=== PATIENT | female | born 2000 | race Hispanic/Latino ===

== ENCOUNTER 2021-07-07 12:23 | Emergency (ER) | payer BC, MEDICAID ==
[~2021-07-07] VITALS: Ht 162.6 cm; Wt 79.8 kg
[2021-07-07] MEDS ORDERED: 0.9%NACL 1000ML 1,000 ML IV SCH (13:00)
[2021-07-07] MEDS ORDERED: PROMETHAZINE HCL 25 MG/ML 1ML AMPULE IM ONE (13:00)
[2021-07-07 13:03] LABS: BASOPHILS % (AUTO) 0.5 % (0.0-5.0); EOSINOPHILS % (AUTO) 2.9 % (0.0-8.0); HEMATOCRIT 39.4 % (36-48); LYMPHOCYTES % (AUTO) 18.1 % (21.0-51.0); MEAN CORPUSCULAR HEMOGLOBIN 27.2 pg (27.0-33.0); MEAN CORPUSCULAR VOLUME 79.9 fL (79-99); MONOCYTES % (AUTO) 8.1 % (3.0-13.0); NEUTROPHILS % (AUTO) 70.1 % (40.0-77.0); PLATELET COUNT (AUTO) 321 K/uL (130-400); RED BLOOD CELL COUNT(AUTO) 4.93 MIL/uL (4.00-5.50); RED CELL DISTRIBUTION WIDTH 14.3 % (11.0-15.5); WHITE BLOOD COUNT (AUTO) 10.1 K/uL (4.8-10.8)
[2021-07-07 13:03] LABS: APPEARANCE,URINE Clear (CLEAR); BILIRUBIN,URINE Negative (NEGATIVE); COLOR,URINE Yellow (YELLOW); GLUCOSE, URINE (UA) Negative (NEGATIVE); KETONES,URINE Trace mg/dL (NEGATIVE); LEUKOCYTE ESTERASE ,URINE Small (NEGATIVE); NITRATE,URINE Negative (NEGATIVE); OCCULT BLOOD,URINE Negative (NEGATIVE); PROTEIN,URINE Negative (NEGATIVE); UROBILINOGEN,URINE 0.2 mg/dL (0.2-1.0)
[2021-07-07 13:09] LABS: BACTERIA,URINE Few /HPF (None Seen); MUCUS,URINE Moderate LPF (None Seen); RBC,URINE None Seen /HPF (0-1)
[2021-07-07 13:10] LABS: CREATININE 0.5 mg/dL (0.5-1.5); POTASSIUM 3.6 mmol/L (3.5-5.1)
[2021-07-07 13:41] LABS: ALBUMIN 3.3 g/dL (3.5-5.0); BILIRUBIN,TOTAL 0.3 mg/dL (0.2-1.0)
[2021-07-07] MEDS ORDERED: CEFTRIAXONE 1G VIAL IVP ONE (14:00)
[2021-07-07] MEDS ORDERED: CEFTRIAXONE 1G VIAL ONE (14:17)
[2021-07-07] MEDS ORDERED: CEPH500B PO (14:19)
[2021-07-07] MEDS ORDERED: PHEN12S PR (14:19)
[2021-07-07 14:32] VITALS: BP 128/79
== END 2021-07-07 14:51 | disposition home or self-care (01) ==
LOC: EDH 12:23
DX: O99.619 Diseases of the digestive system complicating pregnancy, unspecified trimester (principal); K52.9 Noninfective gastroenteritis and colitis, unspecified; O23.40 Unspecified infection of urinary tract in pregnancy, unspecified trimester; N39.0 Urinary tract infection, site not specified; Z3A.00 Weeks of gestation of pregnancy not specified; Z20.822 Contact with and (suspected) exposure to COVID-19
CPT/HCPCS: 36415; 80053; 81001; 84702; 85025; 87635; 87804 ×2; 96361; 96372; 96374; 99284; C9803; J0696; J2550; J7030

== ENCOUNTER 2021-07-23 10:27 | Emergency (ER) | payer BC, MEDICAID ==
[~2021-07-23] VITALS: Ht 162.6 cm; Wt 78.9 kg
[~2021-07-23 10:27] MED LIST: CEPH500B PO; PHEN12S PR
[2021-07-23 11:04] LABS: APPEARANCE,URINE Cloudy (CLEAR); BILIRUBIN,URINE Negative (NEGATIVE); COLOR,URINE Dark Yellow (YELLOW); GLUCOSE, URINE (UA) Negative (NEGATIVE); KETONES,URINE Trace mg/dL (NEGATIVE); LEUKOCYTE ESTERASE ,URINE Moderate (NEGATIVE); NITRATE,URINE Negative (NEGATIVE); OCCULT BLOOD,URINE Negative (NEGATIVE); PH,URINE 6.5 (5.0-8.0); PROTEIN,URINE POS 1+ mg/dL (NEGATIVE)
[2021-07-23 11:05] LABS: HCG,QUAL RESULT POSITIVE (NEGATIVE)
[2021-07-23 11:10] LABS: BASOPHILS % (AUTO) 0.5 % (0.0-5.0); EOSINOPHILS % (AUTO) 2.9 % (0.0-8.0); HEMATOCRIT 38.2 % (36-48); LYMPHOCYTES % (AUTO) 16.8 % (21.0-51.0); MEAN CORPUSCULAR HEMOGLOBIN 27.1 pg (27.0-33.0); MEAN CORPUSCULAR VOLUME 79.6 fL (79-99); MONOCYTES % (AUTO) 6.2 % (3.0-13.0); NEUTROPHILS % (AUTO) 73.1 % (40.0-77.0); PLATELET COUNT (AUTO) 282 K/uL (130-400); RED CELL DISTRIBUTION WIDTH 14.3 % (11.0-15.5); WHITE BLOOD COUNT (AUTO) 7.6 K/uL (4.8-10.8)
[2021-07-23 11:16] LABS: RBC,URINE 0-1 /HPF (0-1)
[2021-07-23 11:17] LABS: BACTERIA,URINE Few /HPF (None Seen); MUCUS,URINE Moderate LPF (None Seen)
[2021-07-23 11:23] LABS: CREATININE 0.5 mg/dL (0.5-1.5); POTASSIUM 3.6 mmol/L (3.5-5.1)
[2021-07-23 11:28] LABS: ALBUMIN 3.3 g/dL (3.5-5.0); BILIRUBIN,TOTAL 0.3 mg/dL (0.2-1.0); TOTAL PROTEIN, SERUM 6.9 g/dL (6.0-8.3)
[2021-07-23] MEDS ORDERED: 0.9%NACL 1000ML 1,000 ML IV ONE (12:00)
[2021-07-23] MEDS ORDERED: ONDANSETRON 4MG INJ IVP ONE (12:00)
[2021-07-23] MEDS ORDERED: MACR100 PO (13:22)
[2021-07-23 13:42] VITALS: BP 115/75
== END 2021-07-23 13:44 | disposition home or self-care (01) ==
LOC: EDH 10:27
DX: O23.41 Unspecified infection of urinary tract in pregnancy, first trimester (principal); N39.0 Urinary tract infection, site not specified; O99.891 Other specified diseases and conditions complicating pregnancy; E86.9 Volume depletion, unspecified; Z3A.11 11 weeks gestation of pregnancy
CPT/HCPCS: 36415; 80053; 81001; 81025; 85025; 87088; 96361; 96374; 99284; J2405; J7030

== ENCOUNTER 2021-07-29 09:52 | Emergency (ER) | payer BC, MEDICAID ==
[~2021-07-29] VITALS: Ht 162.6 cm; Wt 78.0 kg
[~2021-07-29 09:52] MED LIST changes: +MACR100 PO
[2021-07-29 09:54] VITALS: BP 112/81
[2021-07-29 10:16] LABS: BASOPHILS % (AUTO) 0.7 % (0.0-5.0); EOSINOPHILS % (AUTO) 1.2 % (0.0-8.0); HEMATOCRIT 40.4 % (36-48); LYMPHOCYTES % (AUTO) 15.9 % (21.0-51.0); MEAN CORPUSCULAR HEMOGLOBIN 27.3 pg (27.0-33.0); MEAN CORPUSCULAR HGB CONC 34.4 g/dL (32.0-36.0); MEAN CORPUSCULAR VOLUME 79.4 fL (79-99); MONOCYTES % (AUTO) 5.4 % (3.0-13.0); NEUTROPHILS % (AUTO) 76.4 % (40.0-77.0); PLATELET COUNT (AUTO) 297 K/uL (130-400); RED BLOOD CELL COUNT(AUTO) 5.09 MIL/uL (4.00-5.50); RED CELL DISTRIBUTION WIDTH 14.1 % (11.0-15.5); WHITE BLOOD COUNT (AUTO) 6.9 K/uL (4.8-10.8)
[2021-07-29 10:27] LABS: CREATININE 0.6 mg/dL (0.5-1.5); POTASSIUM 3.6 mmol/L (3.5-5.1)
[2021-07-29] MEDS ORDERED: 0.9%NACL 1000ML 1,000 ML IV ONE (10:30)
[2021-07-29] MEDS ORDERED: ONDANSETRON 4MG INJ IVP ONE (10:30)
[2021-07-29 10:31] LABS: ALBUMIN 3.6 g/dL (3.5-5.0); BILIRUBIN,TOTAL 0.4 mg/dL (0.2-1.0); TOTAL PROTEIN, SERUM 7.5 g/dL (6.0-8.3)
[2021-07-29 10:40] LABS: HCG,QUAL RESULT POSITIVE (NEGATIVE)
[2021-07-29 10:41] LABS: APPEARANCE,URINE Clear (CLEAR); BILIRUBIN,URINE Negative (NEGATIVE); COLOR,URINE Dark Yellow (YELLOW); GLUCOSE, URINE (UA) Negative (NEGATIVE); KETONES,URINE >=80 mg/dL (NEGATIVE); LEUKOCYTE ESTERASE ,URINE Trace (NEGATIVE); NITRATE,URINE Negative (NEGATIVE); OCCULT BLOOD,URINE Negative (NEGATIVE); PH,URINE 6.5 (5.0-8.0); PROTEIN,URINE POS 1+ mg/dL (NEGATIVE)
[2021-07-29 10:52] LABS: BACTERIA,URINE Rare /HPF (None Seen); MUCUS,URINE Few LPF (None Seen); RBC,URINE 0-1 /HPF (0-1); SQUAMOUS EPITHELIAL CELL,UR Rare /HPF (0-2)
== END 2021-07-29 12:39 | disposition home or self-care (01) ==
LOC: EDH 09:52
DX: O99.281 Endocrine, nutritional and metabolic diseases complicating pregnancy, first trimester (principal); E86.9 Volume depletion, unspecified; O21.9 Vomiting of pregnancy, unspecified; Z3A.12 12 weeks gestation of pregnancy; Z20.822 Contact with and (suspected) exposure to COVID-19
CPT/HCPCS: 36415; 80053; 81001; 81025; 83690; 85025; 87635; 96361; 96374; 99284; C9803; J2405; J7030

== ENCOUNTER 2021-11-20 15:37 | Observation (INO) | payer BC, MEDICAID ==
[~2021-11-20] VITALS: Ht 162.6 cm; Wt 87.1 kg
[2021-11-20 16:37] LABS: BASOPHILS % (AUTO) 0.4 % (0.0-5.0); HEMATOCRIT 31.1 % (36-48); LYMPHOCYTES % (AUTO) 19.1 % (21.0-51.0); MEAN CORPUSCULAR HEMOGLOBIN 26.4 pg (27.0-33.0); MEAN CORPUSCULAR HGB CONC 33.8 g/dL (32.0-36.0); MEAN CORPUSCULAR VOLUME 78.1 fL (79-99); MONOCYTES % (AUTO) 8.6 % (3.0-13.0); NEUTROPHILS % (AUTO) 69.4 % (40.0-77.0); PLATELET COUNT (AUTO) 301 K/uL (130-400); RED BLOOD CELL COUNT(AUTO) 3.98 MIL/uL (4.00-5.50); RED CELL DISTRIBUTION WIDTH 12.8 % (11.0-15.5); WHITE BLOOD COUNT (AUTO) 9.8 K/uL (4.8-10.8)
[2021-11-20 16:46] LABS: CREATININE 0.5 mg/dL (0.5-1.5); POTASSIUM 3.2 mmol/L (3.5-5.1)
[2021-11-20 16:54] LABS: ALBUMIN 2.5 g/dL (3.5-5.0); TOTAL PROTEIN, SERUM 6.2 g/dL (6.0-8.3)
[2021-11-20 17:03] LABS: APPEARANCE,URINE CLEAR (CLEAR); BILIRUBIN,URINE NEGATIVE (NEGATIVE); COLOR,URINE YELLOW (YELLOW); GLUCOSE, URINE (UA) NEGATIVE (NEGATIVE); KETONES,URINE 5 mg/dL (NEGATIVE); LEUKOCYTE ESTERASE ,URINE 250 Leu/uL (NEGATIVE); NITRATE,URINE NEGATIVE (NEGATIVE); OCCULT BLOOD,URINE NEGATIVE (NEGATIVE); PH,URINE 5.5 (5.0-8.0); PROTEIN,URINE 10 mg/dL (NEGATIVE); UROBILINOGEN,URINE 0.2 mg/dL (0.2-1.0)
[2021-11-20] MEDS ORDERED: KCL 20 MEQ ERTAB PO ONE (17:15)
[2021-11-20 17:27] LABS: BACTERIA,URINE Moderate /HPF (None Seen); MUCUS,URINE Moderate LPF (None Seen); SQUAMOUS EPITHELIAL CELL,UR Few /HPF (0-2)
[2021-11-20 17:59] VITALS: BP 105/69
== END 2021-11-20 20:20 | disposition home or self-care (01) ==
LOC: EDH 15:37 → LDH 18:57
PROVIDERS: ADMIT Obstetrics & Gynecology; ATTEND Obstetrics & Gynecology
DX: O99.353 Diseases of the nervous system complicating pregnancy, third trimester (principal); G43.109 Migraine with aura, not intractable, without status migrainosus; O23.13 Infections of bladder in pregnancy, third trimester; N30.00 Acute cystitis without hematuria; Z3A.31 31 weeks gestation of pregnancy
CPT/HCPCS: 99284; 80053; 85025; 87088; 81001; 36415; G0378 ×2

== ENCOUNTER 2022-12-22 17:08 | Emergency (ER) | payer BC, MEDICAID, OTHER ==
[~2022-12-22] VITALS: Ht 162.6 cm; Wt 85.7 kg
[~2022-12-22 17:08] MED LIST changes: -CEPH500B PO; +IBUP-2077 PO; -MACR100 PO; -PHEN12S PR; +PREN-226 PO
[2022-12-22 18:44] LABS: BASOPHILS # (AUTO) 0.05 K/uL (0.00-0.20); BASOPHILS % (AUTO) 1.1 % (0.0-5.0); EOSINOPHILS # (AUTO) 0.31 K/uL (0.00-0.70); EOSINOPHILS % (AUTO) 6.6 % (0.0-8.0); IMMATURE GRANULOCYTE ABSOLUTE 0.01 K/uL (0-1); LYMPHOCYTES # (AUTO) 1.3 K/uL (1.0-4.8); LYMPHOCYTES % (AUTO) 27.8 % (21.0-51.0); MEAN CORPUSCULAR HEMOGLOBIN 26.1 pg (27.0-33.0); MEAN CORPUSCULAR HGB CONC 33.3 g/dL (32.0-36.0); MEAN CORPUSCULAR VOLUME 78.4 fL (79-99); MONOCYTES # (AUTO) 0.5 K/uL (0.1-1.0); MONOCYTES % (AUTO) 10.9 % (3.0-13.0); NEUTROPHILS # (AUTO) 2.5 K/uL (1.8-7.7); NEUTROPHILS % (AUTO) 53.4 % (40.0-77.0); PLATELET COUNT (AUTO) 286 K/uL (130-400); RED CELL DISTRIBUTION WIDTH 13.6 % (11.0-15.5); WHITE BLOOD COUNT (AUTO) 4.7 K/uL (4.8-10.8)
[2022-12-22 18:45] LABS: APPEARANCE,URINE CLEAR (CLEAR); BILIRUBIN,URINE NEGATIVE (NEGATIVE); COLOR,URINE LIGHT-YELLOW (YELLOW); GLUCOSE, URINE (UA) NEGATIVE (NEGATIVE); KETONES,URINE NEGATIVE (NEGATIVE); LEUKOCYTE ESTERASE ,URINE 75 Leu/uL (NEGATIVE); NITRATE,URINE NEGATIVE (NEGATIVE); OCCULT BLOOD,URINE NEGATIVE (NEGATIVE); PROTEIN,URINE NEGATIVE (NEGATIVE); UROBILINOGEN,URINE 0.2 mg/dL (0.2-1.0)
[2022-12-22 18:48] LABS: HCG,QUALITATIVE URINE NEGATIVE (NEGATIVE)
[2022-12-22 18:49] LABS: ADD UA MICROSCOPIC YES
[2022-12-22 18:51] LABS: BACTERIA,URINE MOD /HPF (None Seen); MUCUS,URINE FEW LPF (None Seen); RBC,URINE 0-1 /HPF (0-1); SQUAMOUS EPITHELIAL CELL,UR MOD /HPF (0-2)
[2022-12-22 18:54] LABS: CREATININE 0.7 mg/dL (0.5-1.5); POTASSIUM 3.4 mmol/L (3.5-5.1)
[2022-12-22 18:59] LABS: ALBUMIN 3.7 g/dL (3.5-5.0); BILIRUBIN,TOTAL 0.4 mg/dL (0.2-1.0); TOTAL PROTEIN, SERUM 7.4 g/dL (6.0-8.3)
[2022-12-22] MEDS ORDERED: KETOROLAC 30MG VIAL (30MG/ML) IVP ONE (19:30)
[2022-12-22] MEDS ORDERED: ONDANSETRON 4MG INJ IVP ONE (19:30)
[2022-12-22] MEDS ORDERED: IPRATROPIUM/ALBUTEROL SULFATE 3 ML SOLUTION IH ONE (19:30)
[2022-12-22] MEDS ORDERED: SOLU-MEDROL 125MG VIAL IVP ONE (19:30)
[2022-12-22] MEDS ORDERED: 0.9%NACL 1000ML 1,000 ML IV ONE (19:30)
[2022-12-22] MEDS ORDERED: IOHEXOL 350 MG/ML 100ML INFUS..BTL IV ONE (19:55)
[2022-12-22 20:07] LABS: RAPID GROUP A STREP negative (NEGATIVE)
[2022-12-22 20:16] LABS: INFLUENZA TYPE A Negative For Type A (NEGATIVE); INFLUENZA TYPE B Negative For Type B (NEGATIVE)
[2022-12-22 20:18] VITALS: PULSE 74; RESP 18
[2022-12-22 21:00] LABS: SARS-CoV-2, RNA, NAAT NEGATIVE SARS CoV-2 (NEGATIVE)
[2022-12-22] MEDS ORDERED: CEFD300C3 PO (21:52)
[2022-12-22] MEDS ORDERED: BENZ-39 PO (21:52)
[2022-12-22] MEDS ORDERED: IPRA3AMP24 IH (21:52)
[2022-12-22] MEDS ORDERED: METH4TAB3 PO (21:52)
[2022-12-22] MEDS ORDERED: ONDA-104 PO (21:52)
[2022-12-22] MEDS ORDERED: ALBU6.7H14 IH (21:52)
[2022-12-22 22:36] VITALS: BP 116/78; PULSE 69; RESP 18; O2SAT 99
== END 2022-12-22 22:38 | disposition home or self-care (01) ==
LOC: EDH 17:08
DX: N39.0 Urinary tract infection, site not specified (principal); N83.201 Unspecified ovarian cyst, right side; I88.0 Nonspecific mesenteric lymphadenitis; J40 Bronchitis, not specified as acute or chronic; Z79.899 Other long term (current) drug therapy
CPT/HCPCS: 99285; 74177; 96374; 96361; 71045; 96375; 87635; 80053; 83690; 85025; 87088; 87880; 87804 ×2; 81001; 81025; 36415; 94640; C9803; J7030; J2930; J2405; J1885; Q9967

== ENCOUNTER → 2024-04-02 | Outpatient (CLI) | payer OTHER ==
[~2024-04-02] MED LIST changes: +ALBU6.7H14 IH; +BENZ-39 PO; +CEFD300C3 PO; +IPRA3AMP24 IH; +METH4TAB3 PO; +ONDA-104 PO
[2024-04-02 09:38] LABS: BASOPHILS # (AUTO) 0.05 K/uL (0.00-0.20); BASOPHILS % (AUTO) 0.8 % (0.0-5.0); EOSINOPHILS # (AUTO) 0.26 K/uL (0.00-0.70); EOSINOPHILS % (AUTO) 4.2 % (0.0-8.0); HEMATOCRIT 39.8 % (36-48); IMMATURE GRANULOCYTE ABSOLUTE 0.01 K/uL (0-1); LYMPHOCYTES % (AUTO) 33.2 % (21.0-51.0); MEAN CORPUSCULAR HEMOGLOBIN 27.4 pg (27.0-33.0); MEAN CORPUSCULAR HGB CONC 33.4 g/dL (32.0-36.0); MEAN CORPUSCULAR VOLUME 82.1 fL (79-99); MONOCYTES # (AUTO) 0.4 K/uL (0.1-1.0); MONOCYTES % (AUTO) 6.3 % (3.0-13.0); NEUTROPHILS # (AUTO) 3.4 K/uL (1.8-7.7); NEUTROPHILS % (AUTO) 55.3 % (40.0-77.0); PLATELET COUNT (AUTO) 340 K/uL (130-400); RED BLOOD CELL COUNT(AUTO) 4.85 MIL/uL (4.00-5.50); RED CELL DISTRIBUTION WIDTH 12.6 % (11.0-15.5); WHITE BLOOD COUNT (AUTO) 6.2 K/uL (4.8-10.8)
[2024-04-02 09:42] LABS: APPEARANCE,URINE TURBID (CLEAR); BILIRUBIN,URINE NEGATIVE (NEGATIVE); COLOR,URINE BROWN (YELLOW); GLUCOSE, URINE (UA) NEGATIVE (NEGATIVE); KETONES,URINE 5 mg/dL (NEGATIVE); LEUKOCYTE ESTERASE ,URINE 75 Leu/uL (NEGATIVE); NITRATE,URINE NEGATIVE (NEGATIVE); OCCULT BLOOD,URINE LARGE (NEGATIVE); PROTEIN,URINE 20 mg/dL (NEGATIVE); UROBILINOGEN,URINE 0.2 mg/dL (0.2-1.0)
[2024-04-02 09:44] LABS: ADD UA MICROSCOPIC YES
[2024-04-02 09:48] LABS: BACTERIA,URINE FEW /HPF (None Seen); MUCUS,URINE RARE LPF (None Seen); RBC,URINE TNTC /HPF (0-1); SQUAMOUS EPITHELIAL CELL,UR FEW /HPF (0-2); WBC,URINE 26-50 /HPF (0-1)
[2024-04-02 10:25] LABS: HEMOGLOBIN A1C 5.5 % (4.0-6.0)
[2024-04-02 10:56] LABS: ALBUMIN 3.9 g/dL (3.5-5.0); BILIRUBIN,TOTAL 0.4 mg/dL (0.2-1.0); CREATININE 0.7 mg/dL (0.5-1.0); POTASSIUM 3.9 mmol/L (3.5-5.1); THYROID STIMULATING HORMONE 1.26 uIU/mL (0.36-3.74); TOTAL PROTEIN, SERUM 7.5 g/dL (6.0-8.3)
== END | disposition home or self-care (01) ==
LOC: LAB 09:00
PROVIDERS: ATTEND Internal Medicine Nephrology
DX: Z00.00 Encounter for general adult medical examination without abnormal findings (principal)
CPT/HCPCS: 36415; 80053; 80061; 81001; 83036; 84443; 85025; 87086

== ENCOUNTER 2024-05-02 17:12 | Emergency (ER) | payer OTHER ==
[~2024-05-02] VITALS: Ht 162.6 cm; Wt 86.2 kg
[2024-05-02 18:03] LABS: RAPID GROUP A STREP negative (NEGATIVE)
[2024-05-02 18:12] LABS: COVID19 (SARS ANTIGEN RAPID) PRESUMPTIVE NEGATIVE (NEGATIVE); INFLUENZA TYPE A Negative For Type A (NEGATIVE); INFLUENZA TYPE B Negative For Type B (NEGATIVE)
[2024-05-02 18:26] VITALS: BP 140/80; PULSE 72; RESP 16; TEMP 98.1; O2SAT 98
[2024-05-02] MEDS: dexaMETHasone SOD PHOSPHATE 4 MG/ML 1ML VIAL IM ONE (18:33)
[2024-05-02] MEDS ORDERED: FLUT16H NS (18:39)
[2024-05-02] MEDS ORDERED: PSEU120T62 PO (18:39)
--- NOTE | 2024-05-02 18:40 | ERN ---
General Chief Complaint: Flu Symptoms Stated Complaint: FLY SYMPTOMS X 3 DAYS Time Seen by MD: 17:14 Time Seen by Midlevel: 17:14 Source: patient History of Present Illness Initial Comments 23-year-old female who presents to the emergency department due to flu-like symptoms onset three days. Patient reports cough, sore throat, congestion, bilateral ear pain, headache but denies further associated symptoms. Denies significant past medical history. Allergies: Coded Allergies: No Known Drug Allergies (Unverified Allergy, Unknown, 07/07/21) Uncoded Allergies: LATEX (Allergy, Unknown, HIVES, 02/02/22) Home Meds Active Scripts Fluticasone Propionate (Flonase Nasal [place]) 50 Mcg/Actuation [place], 2 SPRAY NS DAILY for 7 Days, #16 GM 0 Refills Prov:FELICIANO RIZO 05/02/24 Pseudoephedrine HCl (Sudafed 12 Hour) 120 Mg Tablet.er, 1 TAB PO BID for 7 Days, #14 TAB 0 Refills Prov:FELICIANO RIZO 05/02/24 Benzonatate (Tessalon Perles) 100 Mg Cap, 100 MG PO TID for 5 Days, #20 CAP Prov:NARINDER FRAZIER 12/22/22 Ondansetron HCl (Ondansetron HCl) 4 Mg Tablet, 4 MG PO TID for 3 Days, #9 TAB Prov:NARINDER FRAZIER 12/22/22 Methylprednisolone (Medrol) 4 Mg Tab.ds.pk, 4 MG PO AD for 5 Days, #1 PACK Prov:NARINDER FRAZIER 12/22/22 Albuterol Sulfate (Proventil Hfa) 90 Mcg Hfa.aer.ad, 2 INH IH Q4HPRN PRN for SHORTNESS OF BREATH for 30 Days, #1 INHALER Prov:NARINDER FRAZIER 12/22/22 Ipratropium/Albuterol Sulfate (Iprat-Albut 0.5-3(2.5) mg/3 ml) 0.5 Mg-3 Mg (2.5 Mg Base)/3 Ml Ampul.neb, 3 ML IH Q4HPRN for 10 Days, #90 UNIT Prov:NARINDER FRAZIER 12/22/22 Cefdinir (Cefdinir) 300 Mg Capsule, 300 MG PO BID for 10 Days, #20 CAP Prov:NARINDER FRAZIER Amy MULTANI 12/22/22 Reported Medications Ibuprofen (Ibuprofen 800 mg Tab) 800 Mg Tab, 800 MG PO Q8H PRN for PAIN, #30 TAB 02/04/22 Vit No.179/Iron/Folic ( Tablet) 1 Each Tablet, 1 EACH PO DAILYLUNCH, TAB 02/03/22 Past Medical History Past Medical History: Asthma Past Surgical History: None Family History Family History: Negative Social History Social History: Negative, Lives with family, Other Female( History) History: Not Applicable LMP: Mar 31, 2024 : 1 Para: 1 Aborts: 0 ROS Dictation Constitutional: Negative for fever,chills, and weight loss Eyes: Negative for injury, pain,redness, and discharge ENT: Positive for sore throat, bilateral ear pain, congestion Negative for injury,pain or swelling Cardiovascular: Negative for chest pain, palpitations, and edema Respiratory: Positive for cough Negative for shortness of breath, cough, and wheezing, Abdomen/GI: Negative for abdominal pain, nausea, vomiting, diarrhea, and constipation Back: Negative for injury and pain : Negative for painful urination, bleeding or discharge MS/Extremity: Negative for injury and deformity Skin: Negative for rash, and discoloration Neuro: Positive for headache Negative for weakness, numbness, tingling, and seizure Psych: Negative for suicide ideation, homicidal ideation, and hallucinations Physical Exam Physical Exam Dictation General: awake, alert, no acute distress Head/Face: Normocephalic, atraumatic Eyes: PERRL, EOMI, normal conjunctiva ENT: oral cavity clear, TMs clear, oral mucosa moist Neck: Supple, normal range of motion Cardiovascular: RRR, normal S1/S2 Respiratory: CTAB, no respiratory distress, no rales or wheezes Skin: Warm, dry, normal turgor, no rash MS/Extremity: Pulses equal, no cyanosis, neurovascular intact, FROM Neuro: COAx4, GCS 15, strength 5/5, CN 2-12 intact, normal cerebellar exam, normal gait, Psych: Normal behavior, mood, and affect normal Results Laboratory and Microbiology Lab and Micro Result Laboratory Tests Test 05/02/24 17:32 Influenza Type A Antigen Negative For Type A Influenza Type B Antigen Negative For Type B SARS-CoV-2 Antigen (Rapid) PRESUMPTIVE NEGATIVE Group A Streptococcus Rapid negative (NEGATIVE) Labs Reviewed?: Yes MDM MDM: Differential diagnosis: Influenza, strep, viral illness Rationale: 23-year-old female who presents to the emergency department due to flu-like symptoms onset three days. Patient reports cough, sore throat, congestion, bilateral ear pain, headache but denies further associated symptoms. Denies significant past medical history. Per physical examination patient is in no acute distress, nonlabored breathing. SARs, influenza, strep negative. Patient was educated on findings and diagnosis. Advised to follow up with PCP. Return to the emergency department if any worsening symptoms. Patient verbalized understanding. Patient stable for discharge. There are no social concerns with this patient. I independently interpreted the test that were performed, results were reviewed by me and considered findings on radiology if ordered. Medical management and examination interpretation discussions were had by me with other qualified healthcare professionals as indicated for the patient's care. ED Course Orders Procedure Category Date Status Time Covid19 (Sars Antigen LAB 05/02/24 Complete Rapid) 17:27 Rapid (Group A Strep) LAB 05/02/24 Complete 17:27 Influenza Type A & B, LAB 05/02/24 Complete Rapid 17:27 Dexamethasone 4mg/Ml PHA 05/02/24 Complete 1ml Vial (Dexametha 18:30 Current Medications Medications (Trade) Dose Ordered Sig/Chloe Route PRN Reason Start Time Stop Time Status Last Admin Dose Admin Dexamethasone Sodium Phosphate (dexaMETHasone 4MG/ML 1ML VIAL) 6 mg ONCE ONCE IM 05/02/24 18:30 05/02/24 18:31 DC 05/02/24 18:33 Vital Signs Date Time Temp Pulse Resp B/P (MAP) Pulse Ox O2 Delivery O2 Flow Rate FiO2 05/02/24 18:26 98.1 72 16 140/80 98 Room Air* 0 21 05/02/24 17:28 98.8 75 20 143/86 99 Room Air 0 DX & DISP Disposition: Discharge Departure Impression: Primary Impression: Viral illness Condition: Stable Scripts Fluticasone Propionate (Flonase Nasal [place]) 50 Mcg/Actuation [place] 2 SPRAY NS DAILY for 7 Days, #16 GM 0 Refills Prov: FELICIANO RIZO 05/02/24 Pseudoephedrine HCl (Sudafed 12 Hour) 120 Mg Tablet.er 1 TAB PO BID for 7 Days, #14 TAB 0 Refills Prov: FELICIANO RIZO 05/02/24 Additional Instructions: Discharge home. Rest. Follow up with primary care DrAnderson in 24 hours. Return to the ER for any acute changes or worsening symptoms. If any medications were prescribed take as directed. Okay to continue home medications unless otherwise discussed during your visit in the emergency room today. Patient was also advised to follow-up with primary care physician in 1 to 2 days for continued monitoring. I performed the substantive portion of the visit. I have reviewed and personally made and approve the management plan that is documented in the notes by myself or the JORGE LUIS. I acknowledge full responsibility for the patient's management plan. FELICIANO RIZO May 02, 2024 18:39 DEMI RAHMAN DO May 03, 2024 07:38
== END 2024-05-02 18:45 | disposition home or self-care (01) ==
LOC: EDH 17:12
DX: B34.9 Viral infection, unspecified (principal); Z20.822 Contact with and (suspected) exposure to COVID-19; J45.909 Unspecified asthma, uncomplicated
CPT/HCPCS: 99283; 87426; 87880; 87804 ×2; 96372; J1100

== ENCOUNTER → 2024-05-16 | Outpatient (CLI) | payer OTHER ==
[~2024-05-16] MED LIST changes: +FLUT16H NS; +PSEU120T62 PO
--- NOTE | 2024-05-17 08:42 | HMCIMG ---
US BREAST BILATERAL REASON: MASTODYNIA. COMPARISON: None TECHNIQUE: Bilateral breast ultrasound study was performed. FINDINGS: Over the region of interest at 12:00 of the left breast in the subareolar region, there are dense fibroglandular tissue. No evidence of cystic or hypoechoic mass is seen. There are bilateral axillary lymph nodes with right measuring 15 mm and left measuring 18 mm. IMPRESSION: No evidence of cystic or hypoechoic mass is seen. CATEGORY 2: BENIGN FINDINGS Recommend monthly self breast exam as well as annual clinical examination.
== END | disposition home or self-care (01) ==
LOC: RAH 08:42
PROVIDERS: ATTEND Obstetrics & Gynecology
DX: N64.4 Mastodynia (principal); R92.30 Dense breasts, unspecified

== ENCOUNTER → 2024-09-10 | Outpatient (CLI) | payer OTHER | END | disposition home or self-care (01) | LOC: LAB 10:34 | PROVIDERS: ATTEND Internal Medicine Nephrology | DX: N91.2 Amenorrhea, unspecified (principal) | CPT/HCPCS: 36415; 84703 ==

== ENCOUNTER → 2024-09-30 | Outpatient (CLI) | payer OTHER | END | disposition home or self-care (01) | LOC: RAH 08:15 | PROVIDERS: ATTEND Obstetrics & Gynecology | DX: N91.2 Amenorrhea, unspecified (principal) | CPT/HCPCS: 76856 ==

== ENCOUNTER 2024-10-07 17:10 | Emergency (ER) | payer OTHER ==
[~2024-10-07] VITALS: Ht 162.6 cm; Wt 88.0 kg
[2024-10-07] MEDS: 0.9%NACL 1000ML 1,000 ML IV ONE (17:39)
[2024-10-07 17:46] LABS: IMMATURE GRANULOCYTE ABSOLUTE 0.01 K/uL (0-1); NUCLEATED RED BLOOD CELLS 0.0 % (0.0-0.19); PLATELET COUNT (AUTO) 332 K/uL (130-400); RED BLOOD CELL COUNT(AUTO) 4.92 MIL/uL (4.00-5.50); RED CELL DISTRIBUTION WIDTH 13.5 % (11.0-15.5); WHITE BLOOD COUNT (AUTO) 11.5 K/uL (4.8-10.8)
[2024-10-07 18:00] LABS: CREATININE 0.6 mg/dL (0.5-1.0); GLOMERULAR FILTR. RATE CALC 127.0 mL/min (>90); GLUCOSE,RANDOM 93.0 mg/dL (70-105); SODIUM SERUM 135.0 mmol/L (136-145); UREA NITROGEN, BLOOD 6.0 mg/dL (7-18)
--- NOTE | 2024-10-07 18:04 | ERN ---
ED Note History of Present Illness Stated Complaint: N/V IN Chief Complaint: Vomiting in Time Seen by MD: 17:12 Dictation: 24-year-old female presents to ER complains of nausea, vomiting, abdominal pain. Patient states she is approximately 8 weeks . Denies fever, diarrhea, vaginal bleeding Allergies: Coded Allergies: No Known Drug Allergies (Unverified Allergy, Unknown, 07/07/21) Uncoded Allergies: LATEX (Allergy, Unknown, HIVES, 02/02/22) Home Meds Active Scripts Cephalexin Monohydrate (Keflex) 500 Mg Cap, 1 CAP PO TID for 10 Days, #30 CAP 0 Refills Prov:DAVID PRICE NP 10/07/24 Fluticasone Propionate (Flonase Nasal [place]) 50 Mcg/Actuation [place], 2 SPRAY NS DAILY for 7 Days, #16 GM 0 Refills Prov:FELICIANO RIZO 05/02/24 Pseudoephedrine HCl (Sudafed 12 Hour) 120 Mg Tablet.er, 1 TAB PO BID for 7 Days, #14 TAB 0 Refills Prov:FELICIANO RIZO 05/02/24 Benzonatate (Tessalon Perles) 100 Mg Cap, 100 MG PO TID for 5 Days, #20 CAP Prov:NARINDER FRAZIER 12/22/22 Ondansetron HCl (Ondansetron HCl) 4 Mg Tablet, 4 MG PO TID for 3 Days, #9 TAB Prov:NARINDER FRAZIER 12/22/22 Methylprednisolone (Medrol) 4 Mg Tab.ds.pk, 4 MG PO AD for 5 Days, #1 PACK Prov:NARINDER FRAZIER 12/22/22 Albuterol Sulfate (Proventil Hfa) 90 Mcg Hfa.aer.ad, 2 INH IH Q4HPRN PRN for SHORTNESS OF BREATH for 30 Days, #1 INHALER Prov:NARINDER FRAZIER 12/22/22 Ipratropium/Albuterol Sulfate (Iprat-Albut 0.5-3(2.5) mg/3 ml) 0.5 Mg-3 Mg (2.5 Mg Base)/3 Ml Ampul.neb, 3 ML IH Q4HPRN for 10 Days, #90 UNIT Prov:NARINDER FRAZIER 12/22/22 Cefdinir (Cefdinir) 300 Mg Capsule, 300 MG PO BID for 10 Days, #20 CAP Prov:NARINDER FRAZIER 12/22/22 Reported Medications Ibuprofen (Ibuprofen 800 mg Tab) 800 Mg Tab, 800 MG PO Q8H PRN for PAIN, #30 TAB 02/04/22 Vit No.179/Iron/Folic ( Tablet) 1 Each Tablet, 1 EACH PO DA ILYLUNCH, TAB 02/03/22 Past Medical History Past Medical History: Asthma Surgical History: None Family History: Negative Social History: Negative, Lives with family, Other History: Not Applicable LMP: Aug 09, 2024 : 2 Para: 1 Aborts: 0 Review of System Dictation Constitutional: Negative for fever,chills, and weight loss Eyes: Negative for injury, pain,redness, and discharge ENT: Negative for injury,pain or swelling Cardiovascular: Negative for chest pain, palpitations, and edema Respiratory: Negative for shortness of breath, cough, wheezing, and pleuritic chest pain Abdomen/GI: Negative for diarrhea, and constipation. Positive for abdominal pain, nausea, vomiting Back: Negative for injury and pain : Negative for injury, bleeding and discharge MS/Extremity: Negative for injury and deformity Skin: Negative for rash, and discoloration Neuro: Negative for headache, weakness, numbness, tingling, and seizure Psych: Negative for suicide ideation, homicidal ideation, and hallucinations Allergy/Immunology: Negative for hives, rash, and allergies Initial Vital Sign VS Vital Signs Date Time Temp Pulse Resp B/P (MAP) Pulse Ox O2 Delivery O2 Flow Rate FiO2 10/07/24 17:11 98.6 71 16 124/68 100 Room Air 0 10/07/24 17:20 21 Physical Exam Dictation General: awake, alert, NAD Head/Face: Normocephalic, atraumatic Eyes: PERRL, EOMI, vision at baseline ENT: oral cavity clear, TMs clear, no signs of infection Neck: Trachea midline, supple, no nuchal rigidity Cardiovascular: RRR, normal S1/S2, No MRGs, no JVD Respiratory: CTAB, no respiratory distress, No rales or wheezes Abdomen: Soft, non-tender, non-distended, normal bowel sounds, no guarding or rebound. Skin: Warm, dry, normal turgor, no rash MS/Extremity: Pulses equal, no cyanosis, neurovascular intact, FROM Neuro: COAx4, GCS 15, strength 5/5, CN 2-12 intact, normal cerebellar exam, normal gait, Psych: Normal behavior, mood, and affect normal Results (Laboratory/Radiology) Laboratory/Radiology Laboratory Tests Test 10/07/24 17:35 10/07/24 18:18 White Blood Count 11.5 K/uL (4.8-10.8) H Red Blood Count 4.92 MIL/uL (4.00-5.50) Hemoglobin 13.6 g/dL (12.0-16.0) Hematocrit 38.6 % (36-48) Mean Corpuscular Volume 78.5 fL (79-99) L Mean Corpuscular Hemoglobin 27.6 pg (27.0-33.0) Mean Corpuscular Hemoglobin Concent 35.2 g/dL (32.0-36.0) Red Cell Distribution Width 13.5 % (11.0-15.5) Platelet Count 332 K/uL (130-400) Mean Platelet Volume 9.2 fL (7.5-10.5) Immature Granulocyte % (Auto) 0.1 % (0-1) Neutrophils (%) (Auto) 71.4 % (40.0-77.0) Lymphocytes (%) (Auto) 20.7 % (21.0-51.0) L Monocytes (%) (Auto) 6.1 % (3.0-13.0) Eosinophils (%) (Auto) 1.2 % (0.0-8.0) Basophils (%) (Auto) 0.5 % (0.0-5.0) Neutrophils # (Auto) 8.2 K/uL (1.8-7.7) H Lymphocytes # (Auto) 2.4 K/uL (1.0-4.8) Monocytes # (Auto) 0.7 K/uL (0.1-1.0) Eosinophils # (Auto) 0.14 K/uL (0.00-0.70) Basophils # (Auto) 0.06 K/uL (0.00-0.20) Absolute Immature Granulocyte (auto 0.01 K/uL (0-1) Nucleated Red Blood Cells 0.0 % (0.0-0.19) Sodium Level 135 mmol/L (136-145) L Potassium Level 3.4 mmol/L (3.5-5.1) L Chloride Level 101 mmol/L (101-111) Carbon Dioxide Level 26 mmol/L (21-32) Blood Urea Nitrogen 6 mg/dL (7-18) L Creatinine 0.6 mg/dL (0.5-1.0) Glomerular Filtration Rate Calc 127 mL/min (>90) Random Glucose 93 mg/dL (70-105) Total Calcium 8.8 mg/dL (8.5-10.1) Urine Color YELLOW (YELLOW) Urine Appearance CLOUDY (CLEAR) H Urine pH 6.0 (5.0-8.0) Urine Specific [place] 1.029 (1.001-1.031) Urine Protein 20 mg/dL (NEGATIVE) H Urine Glucose (UA) NEGATIVE mg/dL (NEGATIVE) Urine Ketones NEGATIVE mg/dL (NEGATIVE) Urine Occult Blood NEGATIVE (NEGATIVE) Urine Nitrate NEGATIVE (NEGATIVE) Urine Bilirubin NEGATIVE mg/dL (NEGATIVE) Urine Urobilinogen 0.2 mg/dL (0.2-1.0) Urine Leukocyte Esterase 250 [place]/uL (NEGATIVE) H Urine RBC 2-5 /HPF (0-1) H Urine WBC 11-25 /HPF (0-1) H Urine Squamous Epithelial Cells FEW /HPF (0-2) Urine Bacteria RARE /HPF (None Seen) ED Course ED Course Orders Procedure Category Date Status Time Cbc With Differential LAB 10/07/24 Complete 17:28 Basic Metabolic Panel LAB 10/07/24 Complete 17:28 Ondansetron 4mg Inj PHA 10/07/24 Complete (Zofran 4mg Inj) 17:30 0.9%Nacl 1000ml (Ns PHA 10/07/24 Complete 1000ml) 17:30 Us Ob <14 Weeks US 10/07/24 Resulted 17:32 Urinalysis Profile LAB 10/07/24 Complete 18:13 Culture Urine AMAIRANI 10/07/24 In Process 18:34 Ceftriaxone 1g Vial PHA 10/07/24 Complete (Rocephine 1g Inj) 19:00 Current Medications Medications (Trade) Dose Ordered Sig/Chloe Route PRN Reason Start Time Stop Time Status Last Admin Dose Admin Ceftriaxone Sodium (ROCEphine 1G INJ) 1 gm ONCE ONCE IVPB 10/07/24 19:00 10/07/24 19:01 DC 10/07/24 18:45 Ondansetron HCl (zoFRAN 4MG INJ) 4 mg ONCE ONCE IVP 10/07/24 17:30 10/07/24 17:32 DC 10/07/24 17:39 Sodium Chloride 1,000 ml @ 0 mls/hr ONCE ONCE IV 10/07/24 17:30 10/07/24 17:32 DC 10/07/24 17:39 Vital Signs Date Time Temp Pulse Resp B/P (MAP) Pulse Ox O2 Delivery O2 Flow Rate FiO2 10/07/24 17:20 98.6 70 16 126/66 98 Room Air* 0 21 10/07/24 17:11 98.6 71 16 124/68 100 Room Air 0 Medical Decision Making MDM A 14 points ROS done, pertinent positive and negatives described in HPI; all others negative. TIME WAS SPENT ON COUNSELING, REVIEWING MEDICAL RECORDS, REVIEWING THE ENTIRE VISIT DOCUMENTATION (INCLUDING ANY COMMENTS THAT MAY HAVE BEEN GIVEN BY THE PATIENT i.e. THE REVIEW OF SYSTEMS) AND COORDINATION OF CARE Approximately 8 week OB patient with nausea vomiting abdominal pain no vaginal bleeding. Will order IV hydration antinausea medication and an Ob sono. Ob sono returned heart rate 176 Patient's symptoms improved after IV hydration and nausea medication. Urinalysis shows UTI. Antibiotics given. We will give antibiotics for home for UTI treatment. Patient advised to follow with Ob. Use at home Zofran for nausea. Patient VSS, NAD, nontoxic, stable for discharge. Pt given discharge instructions in layman terms and understood, all questions answered. Pt will follow up with PCP and return to the ER if worse. DX & DISP Disposition: Discharge Departure Impression: Primary Impression: Urinary tract infection Additional Impressions: First trimester , Hyperemesis gravidarum Condition: Stable Scripts Cephalexin Monohydrate (Keflex) 500 Mg Cap 1 CAP PO TID for 10 Days, #30 CAP 0 Refills Prov: DAVID PRICE NP 10/07/24 Referrals: NARINDER GROVES MD (PCP) DAVID PRICE NP Oct 07, 2024 18:04
[2024-10-07 18:27] LABS: APPEARANCE,URINE CLOUDY (CLEAR); GLUCOSE, URINE (UA) NEGATIVE (NEGATIVE); LEUKOCYTE ESTERASE ,URINE 250 Leu/uL (NEGATIVE); NITRATE,URINE NEGATIVE (NEGATIVE); OCCULT BLOOD,URINE NEGATIVE (NEGATIVE)
[2024-10-07 18:33] LABS: ADD UA MICROSCOPIC YES
[2024-10-07 18:35] LABS: SQUAMOUS EPITHELIAL CELL,UR FEW /HPF (0-2)
[2024-10-07] MEDS ORDERED: CEPH500B PO (18:57)
--- NOTE | 2024-10-07 18:59 | HMCIMG ---
EXAMINATION: US Obstetrical, Complete <14 weeks CLINICAL HISTORY: Patient presents with abdominal pain. COMPARISON: None provided. TECHNIQUE: Transabdominal imaging of the maternal pelvis and a <14 week gestation with image documentation. FINDINGS: GESTATION: Estimated gestational age by last menstrual period (LMP 08/09/2024) is 8 weeks 3 days. Estimated gestational age by crown-rump length (CRL) is 8 weeks 0 days. Estimated due date by ultrasound is 05/19/2025. Single intrauterine gestation with a gestational sac measuring 3.03 cm and crown-rump length measuring 1.56 cm. heart rate: 176 bpm. Yolk sac visualized. UTERUS: The uterus measures 8.8 x 6.4 x 4.9 cm. No myometrial mass. The endometrium is within normal limits. CERVIX: Closed. Unremarkable. OVARIES: The right ovary measures 2.0 x 1.9 x 2.6 cm. The left ovary measures 2.5 x 2.0 x 1.8 cm. No adnexal mass. FREE FLUID: No free fluid in the cul-de-sac. IMPRESSION: Single viable intrauterine at approximately 8 weeks gestation. Normal heart rate. No acute abnormality. /[place]
[2024-10-07 19:00] VITALS: BP 123/62; PULSE 68; RESP 16; TEMP 98.6; O2SAT 98
--- NOTE | 2024-10-07 19:04 | NUR ---
transfer care to [facility] at this time
== END 2024-10-07 19:26 | disposition home or self-care (01) ==
LOC: EDH 17:10
DX: O23.41 Unspecified infection of urinary tract in pregnancy, first trimester (principal); N39.0 Urinary tract infection, site not specified; O21.0 Mild hyperemesis gravidarum; O99.511 Diseases of the respiratory system complicating pregnancy, first trimester; J45.909 Unspecified asthma, uncomplicated; Z3A.08 8 weeks gestation of pregnancy
CPT/HCPCS: 99285; 96365; 76801; 96375; 80048; 85025; 87086; 81001; 36415; J7030; J0696; J2405

== ENCOUNTER 2024-10-12 23:31 | Emergency (ER) | payer OTHER ==
[~2024-10-12] VITALS: Ht 162.6 cm; Wt 88.0 kg
[~2024-10-12 23:31] MED LIST changes: +CEPH500B PO
--- NOTE | 2024-10-12 23:47 | ERN ---
ED Note History of Present Illness Stated Complaint: ABD CRAMPING, FEVER, BACK PAIN Chief Complaint: OB<20 weeks gest. Time Seen by MD: 23:45 Dictation: This is a 24-year-old female who is 9 weeks presented to the emergency room stating that she has had abdominal cramping low-grade fever and back pain. She was recently seen in the ER on 10/07 and treated for a UTI. She stated that she has had hyperemesis gravidarum and when she was gagging and vomitings she has experienced lower back pain. She took a shower and when she came out she felt chills and she also had temperature so she came into the ER for further evaluation She is 2 and para 1 Temperature 98.8 pulse 88 respirations 20 blood pressure 130/78 with a pulse oximetry of 99% on room air Allergies: Coded Allergies: No Known Drug Allergies (Unverified Allergy, Unknown, 07/07/21) Uncoded Allergies: LATEX (Allergy, Unknown, HIVES, 02/02/22) Home Meds Active Scripts Cephalexin Monohydrate (Keflex) 500 Mg Cap, 1 CAP PO TID for 10 Days, #30 CAP 0 Refills Prov:DAVID PRICE NP 10/07/24 Fluticasone Propionate (Flonase Nasal [place]) 50 Mcg/Actuation [place], 2 SPRAY NS DAILY for 7 Days, #16 GM 0 Refills Prov:FELICIANO RIZO 05/02/24 Pseudoephedrine HCl (Sudafed 12 Hour) 120 Mg Tablet.er, 1 TAB PO BID for 7 Days, #14 TAB 0 Refills Prov:FELICIANO RIZO 05/02/24 Benzonatate (Tessalon Perles) 100 Mg Cap, 100 MG PO TID for 5 Days, #20 CAP Prov:NARINDER FRAZIER 12/22/22 Ondansetron HCl (Ondansetron HCl) 4 Mg Tablet, 4 MG PO TID for 3 Days, #9 TAB Prov:NARINDER FRAZIER 12/22/22 Methylprednisolone (Medrol) 4 Mg Tab.ds.pk, 4 MG PO AD for 5 Days, #1 PACK Prov:NARINDER FRAZIER 12/22/22 Albuterol Sulfate (Proventil Hfa) 90 Mcg Hfa.aer.ad, 2 INH IH Q4HPRN PRN for SHORTNESS OF BREATH for 30 Days, #1 INHALER Prov:NARINDER FRAZIER 12/22/22 Ipratropium/Albuterol Sulfate (Iprat-Albut 0.5-3(2.5) mg/3 ml) 0.5 Mg-3 Mg (2.5 Mg Base)/3 Ml Ampul.neb, 3 ML IH Q4HPRN for 10 Days, #90 UNIT Prov:NARINDER FRAZIER 12/22/22 Cefdinir (Cefdinir) 300 Mg Capsule, 300 MG PO BID for 10 Days, #20 CAP Prov:NARINDER FRAZIER 12/22/22 Reported Medications Ibuprofen (Ibuprofen 800 mg Tab) 800 Mg Tab, 800 MG PO Q8H PRN for PAIN, #30 TAB 02/04/22 Vit No.179/Iron/Folic ( Tablet) 1 Each Tablet, 1 EACH PO DAILYLUNCH, TAB 02/03/22 Past Medical History Past Medical History: Asthma Surgical History: None Family History: Negative Social History: Negative, Lives with family, Other History: Not Applicable : 2 Para: 1 Aborts: 0 RN Note Reviewed/Agreed w/PFSH: Yes Review of System Dictation Constitutional: Positive for fever,chills, and weight loss Eyes: Negative for injury, pain,redness, and discharge ENT: Negative for injury,pain or swelling Cardiovascular: Negative for chest pain, palpitations, and edema Respiratory: Negative for shortness of breath, cough, and wheezing, Abdomen/GI: Negative for abdominal pain, positive constipation and nausea, vomiting, denied diarrhea, Back: Negative for injury and pain : Negative for injury, bleeding and discharge MS/Extremity: Negative for injury and deformity Skin: Negative for rash, and discoloration Neuro: Negative for headache, weakness, numbness, tingling, and seizure Psych: Negative for suicide ideation, homicidal ideation, and hallucinations Initial Vital Sign VS Vital Signs Date Time Temp Pulse Resp B/P (MAP) Pulse Ox O2 Delivery O2 Flow Rate FiO2 10/12/24 23:33 98.8 88 20 130/78 99 Room Air 10/12/24 23:44 0 21 Physical Exam Dictation General: awake, alert, NAD Head/Face: Normocephalic, atraumatic Eyes: PERRL, EOMI, vision at baseline ENT: oral cavity clear, TMs clear, no signs of infection Neck: Trachea midline, supple, no nuchal rigidity Cardiovascular: RRR, normal S1/S2, No MRGs, no JVD Respiratory: CTAB, no respiratory distress, No rales or wheezes Abdomen: Soft, non-tender, non-distended, normal bowel sounds, no guarding or rebound. Skin: Warm, dry, normal turgor, no rash MS/Extremity: Pulses equal, no cyanosis, neurovascular intact, FROM Neuro: COAx4, GCS 15, strength 5/5, CN 2-12 intact, normal cerebellar exam, normal gait, Psych: Normal behavior, mood, and affect normal Extremities-trace edema without any palpable cords, Homans sign is negative Results (Laboratory/Radiology) Laboratory/Radiology Laboratory Tests Test 10/12/24 23:40 10/12/24 23:45 10/13/24 00:18 White Blood Count 9.9 K/uL (4.8-10.8) Red Blood Count 4.71 MIL/uL (4.00-5.50) Hemoglobin 12.9 g/dL (12.0-16.0) Hematocrit 37.4 % (36-48) Mean Corpuscular Volume 79.4 fL (79-99) Mean Corpuscular Hemoglobin 27.4 pg (27.0-33.0) Mean Corpuscular Hemoglobin Concent 34.5 g/dL (32.0-36.0) Red Cell Distribution Width 13.6 % (11.0-15.5) Platelet Count 310 K/uL (130-400) Mean Platelet Volume 9.4 fL (7.5-10.5) Immature Granulocyte % (Auto) 0.2 % (0-1) Neutrophils (%) (Auto) 62.6 % (40.0-77.0) Lymphocytes (%) (Auto) 28.0 % (21.0-51.0) Monocytes (%) (Auto) 6.2 % (3.0-13.0) Eosinophils (%) (Auto) 2.7 % (0.0-8.0) Basophils (%) (Auto) 0.3 % (0.0-5.0) Neutrophils # (Auto) 6.2 K/uL (1.8-7.7) Lymphocytes # (Auto) 2.8 K/uL (1.0-4.8) Monocytes # (Auto) 0.6 K/uL (0.1-1.0) Eosinophils # (Auto) 0.27 K/uL (0.00-0.70) Basophils # (Auto) 0.03 K/uL (0.00-0.20) Absolute Immature Granulocyte (auto 0.02 K/uL (0-1) Nucleated Red Blood Cells 0.0 % (0.0-0.19) Sodium Level 134 mmol/L (136-145) L Potassium Level 3.5 mmol/L (3.5-5.1) Chloride Level 99 mmol/L (101-111) L Carbon Dioxide Level 24 mmol/L (21-32) Blood Urea Nitrogen 8 mg/dL (7-18) Creatinine 0.5 mg/dL (0.5-1.0) Glomerular Filtration Rate Calc 133 mL/min (>90) Random Glucose 92 mg/dL (70-105) Total Calcium 8.7 mg/dL (8.5-10.1) Human Chorionic Gonadotropin, Quant 69990 mIU/mL (0-5) H Urine Color YELLOW (YELLOW) Urine Appearance CLEAR (CLEAR) Urine pH 6.0 (5.0-8.0) Urine Specific [place] 1.031 (1.001-1.031) Urine Protein NEGATIVE mg/dL (NEGATIVE) Urine Glucose (UA) NEGATIVE mg/dL (NEGATIVE) Urine Ketones NEGATIVE mg/dL (NEGATIVE) Urine Occult Blood NEGATIVE (NEGATIVE) Urine Nitrate NEGATIVE (NEGATIVE) Urine Bilirubin NEGATIVE mg/dL (NEGATIVE) Urine Urobilinogen 0.2 mg/dL (0.2-1.0) Urine Leukocyte Esterase NEGATIVE [place]/uL Influenza Type A Antigen NEGATIVE FOR TYPE A Influenza Type B Antigen NEGATIVE FOR TYPE B SARS-CoV-2 Antigen (Rapid) PRESUMPTIVE NEGATIVE Group A Streptococcus Rapid negative (NEGATIVE) Labs Reviewed?: Yes Ultrasound Comment: NISREEN: ABDOMINAL PAIN ORDERING PHYSICIAN: DAVID PRICE NP PROCEDURE: OB <14 - US OB <14 WEEKS EXAMINATION: US Obstetrical, Complete <14 weeks CLINICAL HISTORY: Patient presents with abdominal pain. COMPARISON: None provided. TECHNIQUE: Transabdominal imaging of the maternal pelvis and a <14 week gestation with image documentation. FINDINGS: GESTATION: Estimated gestational age by last menstrual period (LMP 08/09/2024) is 8 weeks 3 days. Estimated gestational age by crown-rump length (CRL) is 8 weeks 0 days. Estimated due date by ultrasound is 05/19/2025. Single intrauterine gestation with a gestational sac measuring 3.03 cm and crown-rump length measuring 1.56 cm. heart rate: 176 bpm. Yolk sac visualized. UTERUS: The uterus measures 8.8 x 6.4 x 4.9 cm. No myometrial mass. The endometrium is within normal limits. CERVIX: Closed. Unremarkable. OVARIES: The right ovary measures 2.0 x 1.9 x 2.6 cm. The left ovary measures 2.5 x 2.0 x 1.8 cm. No adnexal mass. FREE FLUID: No free fluid in the cul-de-sac. IMPRESSION: Single viable intrauterine at approximately 8 weeks gestation. Normal heart rate. No acute abnormality. /[place]onda DICTATED BY: MARY ESTEVEZ MD DATE: 10/07/241956 ELECTRONICALLY SIGNED BY: MARY ESTEVEZ MD DATE: 10/07/241956 ED Course ED Course Orders Procedure Category Date Status Time Cbc With Differential LAB 10/12/24 Complete 23:45 Basic Metabolic Panel LAB 10/12/24 Complete 23:45 Hcg,Quantitative LAB 10/12/24 Complete 23:45 Urinalysis Profile LAB 10/12/24 Complete 23:45 Influenza Type A & B, LAB 10/13/24 Complete Rapid 00:04 Rapid (Group A Strep) LAB 10/13/24 Complete 00:04 Covid19 (Sars Antigen LAB 10/13/24 Complete Rapid) 00:04 0.9%Nacl 1000ml (Ns PHA 10/13/24 Complete 1000ml) 00:30 Ondansetron 4mg Inj PHA 10/13/24 Complete (Zofran 4mg Inj) 00:30 Morphine 2mg Syg PHA 10/13/24 Complete (Morphine 2mg Syg) 00:30 Current Medications Medications (Trade) Dose Ordered Sig/Chloe Route PRN Reason Start Time Stop Time Status Last Admin Dose Admin Morphine Sulfate (morPHINE 2MG SYG) 2 mg ONCE ONCE IVP 10/13/24 00:30 10/13/24 00:31 DC 10/13/24 00:24 Ondansetron HCl (zoFRAN 4MG INJ) 4 mg ONCE ONCE IVP 10/13/24 00:30 10/13/24 00:31 DC 10/13/24 00:20 Sodium Chloride 1,000 ml @ 0 mls/hr ONCE ONCE IV 10/13/24 00:30 10/13/24 00:31 DC 10/13/24 00:20 Vital Signs Date Time Temp Pulse Resp B/P (MAP) Pulse Ox O2 Delivery O2 Flow Rate FiO2 10/12/24 23:44 98.2 83 18 121/69 99 Room Air* 0 21 10/12/24 23:33 98.8 88 20 130/78 99 Room Air We will perform diagnostic labs, and administer medications according to the patient's complaint. Once the results are available, will review and personally interpreted the labs to rule out any acute life-threatening emergency the trach require immediate intervention and treatment. I will then re-evaluate the patient after treatment and diagnostic exams have return to determine whether the patient requires any further testing, can safely be discharged home or need further admission to hospital for additional treatment and evaluation. Labs reviewed CBC is with a normal limits BNP 7 showed a sodium of 134 chloride 99 rest are all with a normal limits. Nasal swabs for COVID flu and strep were all negative. Urinalysis is completely unremarkable. I updated the patient on all the available results in the possibilities. May simply be another viral syndrome Patient will be discharged to follow up with her Ob Medical Decision Making MDM Differential diagnosis: Viral syndrome, residual UTI, streptococcal pharyngitis, hyperemesis Rationale: Tests considered and ordered secondary to shared decision making include: Previous outside records reviewed: Old ER visits. Risk of complication and/or morbidity or mortality of patient management: None Medications-Per medication reconciliation Need for hospitalization: Patient does not meet criteria for hospitalization. Need for emergency major/minor surgery: No There are no social concerns with this patient. Prescription drug management Prescriptions will include symptomatic care Patient's prior external medical records from other ER visits were reviewed by me as indicated. Prior testing and results from previous visits were reviewed. Prior tests were taken into account with medical decision making and resource u tilization, independent historian/historians were used to obtain complete medical history. I independently interpreted the test that were performed, results were reviewed by me and considered findings on radiology if ordered. Medical management and examination interpretation discussions were had by me with other qualified healthcare professionals as indicated for the patient's ca re. Problem List Problem List: (1) Gastroenteritis (2) Morning sickness (3) Hyperemesis gravidarum (4) Volume depletion DX & DISP Disposition: Discharge Departure Impression: Primary Impression: Gastroenteritis Additional Impressions: Morning sickness, Volume depletion, Viral illness, Hyperemesis gravidarum Condition: Stable Additional Instructions: Patient and the caregiver have been informed of all the diagnostic tests and the imaging conducted during the today's visit to the emergency room and has verbalized understanding of the results I have personally reviewed and interpreted all diagnostic exams performed here in the ER today as well as the vital signs documented by the nursing staff. The patient is now being discharged to home and should follow up with the primary care physician or the specialist as directed by the ER staff. Follow-up with primary care provider in 1 to 2 days. Take medications as directed here in the emergency room. Okay to continue home medications unless otherwise discussed during your visit in the emergency room today. Return to your nearest emergency room if symptoms worsen or if there is no improvement. Call 911 if you need immediate assistance. Take Tylenol or Motrin [id number] as needed and if no contraindications are present. Increase oral hydration. A wound culture or urine culture was ordered here in the emergency room department please follow-up with primary care provider and advise them to get repeat ports from our facility. If you had any Cecilio wrap/splints that were applied here, please do not remove them until you see your primary care or specialty. Referrals: NARINDER GROVES MD (PCP) SANNA VARGAS MD Oct 12, 2024 23:47
[2024-10-12 23:58] LABS: IMMATURE GRANULOCYTE ABSOLUTE 0.02 K/uL (0-1); NUCLEATED RED BLOOD CELLS 0.0 % (0.0-0.19); PLATELET COUNT (AUTO) 310 K/uL (130-400); RED BLOOD CELL COUNT(AUTO) 4.71 MIL/uL (4.00-5.50); RED CELL DISTRIBUTION WIDTH 13.6 % (11.0-15.5); WHITE BLOOD COUNT (AUTO) 9.9 K/uL (4.8-10.8)
[2024-10-12 23:59] LABS: ADD UA MICROSCOPIC NO; APPEARANCE,URINE CLEAR (CLEAR); GLUCOSE, URINE (UA) NEGATIVE (NEGATIVE); LEUKOCYTE ESTERASE ,URINE NEGATIVE Leu/uL (NEGATIVE); NITRATE,URINE NEGATIVE (NEGATIVE); OCCULT BLOOD,URINE NEGATIVE (NEGATIVE)
[2024-10-13 00:04] LABS: CREATININE 0.5 mg/dL (0.5-1.0); GLOMERULAR FILTR. RATE CALC 133.0 mL/min (>90); GLUCOSE,RANDOM 92.0 mg/dL (70-105); SODIUM SERUM 134.0 mmol/L (136-145); UREA NITROGEN, BLOOD 8.0 mg/dL (7-18)
[2024-10-13] MEDS: 0.9%NACL 1000ML 1,000 ML IV ONE (00:20)
[2024-10-13 00:31] LABS: HCG,QUANTITATIVE 92085.0 mIU/mL (0-5)
[2024-10-13 00:36] LABS: RAPID GROUP A STREP negative (NEGATIVE)
[2024-10-13 00:46] LABS: COVID19 (SARS ANTIGEN RAPID) PRESUMPTIVE NEGATIVE (NEGATIVE)
[2024-10-13 00:47] LABS: INFLUENZA TYPE A NEGATIVE FOR TYPE A (NEGATIVE); INFLUENZA TYPE B NEGATIVE FOR TYPE B (NEGATIVE)
[2024-10-13 01:11] VITALS: BP 115/70; PULSE 79; RESP 16; TEMP 98; O2SAT 97
== END 2024-10-13 01:25 | disposition home or self-care (01) ==
LOC: EDH 23:31
DX: O99.511 Diseases of the respiratory system complicating pregnancy, first trimester (principal); K52.9 Noninfective gastroenteritis and colitis, unspecified; O98.511 Other viral diseases complicating pregnancy, first trimester; B34.9 Viral infection, unspecified; O21.0 Mild hyperemesis gravidarum; O99.281 Endocrine, nutritional and metabolic diseases complicating pregnancy, first trimester; E86.9 Volume depletion, unspecified; J45.909 Unspecified asthma, uncomplicated; Z20.822 Contact with and (suspected) exposure to COVID-19; Z3A.08 8 weeks gestation of pregnancy
CPT/HCPCS: 99284; 87426; 80048; 84702; 85025; 87880; 87804 ×2; 81003; 36415; 96374; 96361; 96375; J2270; J7030; J2405